=== PATIENT | female | born 1955 | race Caucasian/White ===

== ENCOUNTER 2019-12-28 15:17 | Outpatient (CLI) | payer SELFPAY ==
--- NOTE | 2019-12-28 15:43 | RAD ---
EXAM: Chest 2 views: HISTORY: Preoperative radiograph COMPARISON: None. FINDINGS: There is a normal-sized cardiomediastinal silhouette. There is no evidence of consolidation, mass, or pleural effusion. No acute osseous abnormality. IMPRESSION: No evidence of acute cardiopulmonary disease
== END 2019-12-28 15:18 | disposition home or self-care (01) ==
LOC: MADLAB 15:17 → MADRAD 15:18
PROVIDERS: ATTEND Family Medicine
DX: Z00.00 Encounter for general adult medical examination without abnormal findings (principal)
CPT/HCPCS: 71046